=== PATIENT | female | born 1960 | race Caucasian/White ===

== ENCOUNTER 2019-07-03 10:02 | Inpatient (IN) | payer MEDICAID ==
[~2019-07-03] VITALS: Ht 175.3 cm; Wt 110.0 kg
[2019-07-03] MEDS ORDERED: iohexol 300mg/ml 100ml inj. ONE (11:49)
[2019-07-03 12:11] LABS: BASOPHILS # (AUTO) 0.1 X10'3 (0-0.2); BASOPHILS % (AUTO) 0.9 % (0-1); EOSINOPHILS # (AUTO) 0.3 X10'3 (0-0.9); EOSINOPHILS % (AUTO) 3.6 % (0-6); HEMATOCRIT 41.6 % (35.0-45.0); HEMOGLOBIN 13.9 g/dl (12.0-16.0); LYMPHOCYTES # (AUTO) 1.4 X10'3 (1.1-4.8); MEAN CORPUSCULAR HEMOGLOBIN 30.9 PG (27.0-31.0); MEAN CORPUSCULAR HGB CONC 33.5 g/dL (33.0-36.5); MEAN CORPUSCULAR VOLUME 92.3 FL (78-98); MEAN PLATELET VOLUME 9.3 FL (7.4-10.4); MONOCYTES # (AUTO) 0.6 X10'3 (0-0.9); MONOCYTES % (AUTO) 8.2 % (2-12); NEUTROPHILS # (AUTO) 4.9 X10'3 (1.8-7.7); NEUTROPHILS % (AUTO) 68.3 % (42-75); PLATELET COUNT 233 X10'3 (140-440); WHITE BLOOD COUNT 7.1 X10'3 (4.5-11.0)
[2019-07-03 12:14] LABS: CLARITY,URINE SLIGHTLY CLOUDY (Clear); COLOR,URINE STRAW (Yellow); GLUCOSE, URINE NEGATIVE (Neg); KETONES,URINE NEGATIVE (Neg); LEUKOCYTE ESTERASE ,URINE NEGATIVE (Neg); NITRITES, URINE NEGATIVE (Neg); OCCULT BLOOD,URINE TRACE-INTACT (Neg); PH,URINE 5.5 (4.8-8.0); PROTEIN,URINE NEGATIVE (Neg); UROBILINOGEN,URINE 0.2 E.U/dL (0.2-1.0)
[2019-07-03 12:24] LABS: ALANINE AMINOTRANSFERASE 29 U/L (12-78); ALBUMIN 3.3 G/DL (3.4-5.0); ALBUMIN/GLOBULIN RATIO 0.9 (1.1-1.5); ALKALINE PHOSPHATASE 80 IU/L (46-116); ANION GAP 8 (8-16); ASPARTATE AMINO TRANSFERASE 24 U/L (10-37); BILIRUBIN,TOTAL 0.4 MG/DL (0.1-1.0); BLOOD UREA NITROGEN 25 MG/DL (7-18); BUN/CREATININE RATIO 30.9 (6.6-38.0); CHLORIDE 107 MMOL/L (99-107); CREATININE 0.81 MG/DL (0.40-0.90); GLUCOSE 85 MG/DL (70-104); LIPASE 368 U/L (73-393); POTASSIUM 4.2 MMOL/L (3.5-5.1); SODIUM 142 MMOL/L (135-145); TOTAL CARBON DIOXIDE 27.1 MMOL/L (24-32); eGFR 72 ML/MIN
[2019-07-03 12:37] LABS: UA COLLECTION TYPE CLN CATCH MIDSTREAM
[2019-07-03 12:44] LABS: MUCUS STRANDS NONE SEEN /LPF (Neg); SQUAMOUS EPITHELIAL CELL,UR MODERATE /LPF (FEW)
[2019-07-03 12:45] LABS: BACTERIA,URINE FEW /HPF (Neg); RBC,URINE 0-2 /HPF (0-2); WBC,URINE NONE SEEN /HPF (0-4)
--- NOTE | 2019-07-03 14:40 | NUR ---
FAXED MRI SCREENING FORM TO MRI.
--- NOTE | 2019-07-03 14:44 | NUR ---
pt out to mri via wheelchair with nanotechnology engineering technician
[2019-07-03] MEDS ORDERED: potassium Cl 20 mEq SR tablet PO PRN ×2 (17:25)
[2019-07-03] MEDS ORDERED: potassium CL 10mEq/100ml bag 100 ML IV PRN ×2 (17:25)
[2019-07-03] MEDS ORDERED: magnesium 4gm in 100ml NS 100 ML IV PRN (17:25)
[2019-07-03] MEDS ORDERED: mag hydrox/Alum hydrox/simeth 30ml oral suspension PO PRN (17:25)
[2019-07-03] MEDS ORDERED: HYDROcodone/acetaminophen 10/325mg tab PO PRN (17:25)
[2019-07-03] MEDS ORDERED: magnesium Cl slow-release 64mg tablet PO PRN (17:25)
[2019-07-03] MEDS ORDERED: diphenhydrAMINE 25mg capsule PO PRN (17:25)
[2019-07-03] MEDS ORDERED: HYDROcodone/acetaminophen 5mg/325mg tablet PO PRN (17:25)
[2019-07-03] MEDS ORDERED: acetaminophen 325mg tablet PO PRN (17:25)
[2019-07-03] MEDS ORDERED: ondansetron/PF 4mg/2ml inj IV PRN (17:25)
[2019-07-03] MEDS ORDERED: morphine 2 MG/ML inj. syringe IV PRN ×2 (17:25)
[2019-07-03] MEDS ORDERED: acetaminophen 650mg rectal suppository RC PRN (17:25)
[2019-07-03] MEDS ORDERED: magnesium 2GM in 50ml NS 50 ML IV PRN (17:25)
[2019-07-03] MEDS ORDERED: NO HOME MEDS (18:17)
[2019-07-03] MEDS: normal saline 1000ml 1,000 ML IV SCH (18:24)
[2019-07-03] MEDS: K and/or MAG REPLACEMENT MC SCH (18:28)
[2019-07-03 18:48] LABS: C-REACTIVE PROTEIN 0.59 MG/DL (0.0-0.5)
[2019-07-03 18:49] LABS: HEMOGLOBIN A1C 5.5 % (4.5-6.2)
[2019-07-03 19:34] LABS: HIV ANTIBODY 1&2 RAPID NON-REACTIVE (Neg)
--- NOTE | 2019-07-03 20:10 | NUR ---
PATIENT ADMITTED TO ROOM 4024B FROM ER FOR BILATERAL LOWER EXTREMITY WEAKNESS AND POSSIBLE GUILLAIN-BARRE SYNDROME? PLACED COMFORTABLE IN BED. VITAL SIGNS TAKEN AND RECORDED.
[2019-07-03] MEDS ORDERED: temazepam 15mg capsule PO PRN (21:00)
[2019-07-03 22:00] VITALS: BP 131/67
[2019-07-04 04:00] VITALS: BP 116/70
[2019-07-04] MEDS: normal saline 1000ml 1,000 ML IV SCH ×3 (04:05→23:23)
[2019-07-04 06:00] VITALS: BP 129/70
[2019-07-04 06:11] LABS: BASOPHILS # (AUTO) 0.1 X10'3 (0-0.2); BASOPHILS % (AUTO) 0.8 % (0-1); EOSINOPHILS # (AUTO) 0.3 X10'3 (0-0.9); EOSINOPHILS % (AUTO) 4.3 % (0-6); HEMATOCRIT 41.1 % (35.0-45.0); LYMPHOCYTES # (AUTO) 1.6 X10'3 (1.1-4.8); LYMPHOCYTES % (AUTO) 26.2 % (21-51); MEAN CORPUSCULAR HEMOGLOBIN 31.6 PG (27.0-31.0); MEAN CORPUSCULAR HGB CONC 34.1 g/dL (33.0-36.5); MEAN CORPUSCULAR VOLUME 92.7 FL (78-98); MEAN PLATELET VOLUME 9.7 FL (7.4-10.4); MONOCYTES # (AUTO) 0.5 X10'3 (0-0.9); MONOCYTES % (AUTO) 7.9 % (2-12); NEUTROPHILS # (AUTO) 3.7 X10'3 (1.8-7.7); NEUTROPHILS % (AUTO) 60.8 % (42-75); PLATELET COUNT 215 X10'3 (140-440); RED BLOOD COUNT 4.44 X10'6 (4.20-5.60); RED CELL DISTRIBUTION WIDTH 12.9 % (11.5-14.5); WHITE BLOOD COUNT 6.1 X10'3 (4.5-11.0)
[2019-07-04 06:23] LABS: ALANINE AMINOTRANSFERASE 29 U/L (12-78); ALBUMIN/GLOBULIN RATIO 0.8 (1.1-1.5); ALKALINE PHOSPHATASE 74 IU/L (46-116); ANION GAP 10 (8-16); ASPARTATE AMINO TRANSFERASE 24 U/L (10-37); BILIRUBIN,TOTAL 0.3 MG/DL (0.1-1.0); BLOOD UREA NITROGEN 18 MG/DL (7-18); CALCIUM 9.1 MG/DL (8.5-10.1); CHLORIDE 107 MMOL/L (99-107); CHOL/HDL RATIO 2.5 (0.00-4.99); CHOLESTEROL 158 MG/DL (0-200); CREATININE 0.82 MG/DL (0.40-0.90); GLUCOSE 83 MG/DL (70-104); HDL CHOLESTEROL 63 MG/DL (35-60); LDL CHOLESTEROL 88 MG/DL (50-100); MAGNESIUM 1.8 MG/DL (1.5-2.4); PHOSPHORUS 3.5 MG/DL (2.3-4.5); POTASSIUM 3.9 MMOL/L (3.5-5.1); SODIUM 141 MMOL/L (135-145); TOTAL CARBON DIOXIDE 23.8 MMOL/L (24-32); TOTAL PROTEIN 6.6 G/DL (6.4-8.2); TRIGLYCERIDES 64 MG/DL (20-135); eGFR 71 ML/MIN
[2019-07-04 06:25] LABS: CLARITY,URINE CLEAR (Clear); COLOR,URINE STRAW (Yellow); GLUCOSE, URINE NEGATIVE (Neg); KETONES,URINE TRACE mg/dl (Neg); LEUKOCYTE ESTERASE ,URINE NEGATIVE (Neg); NITRITES, URINE NEGATIVE (Neg); OCCULT BLOOD,URINE TRACE-INTACT (Neg); PROTEIN,URINE NEGATIVE (Neg); UROBILINOGEN,URINE 0.2 E.U/dL (0.2-1.0)
[2019-07-04 06:30] LABS: UA COLLECTION TYPE CLN CATCH MIDSTREAM
--- NOTE | 2019-07-04 06:30 | NUR ---
Problems reprioritized. Patient report given, questions answered & plan of care reviewed with GLENN ROSA.
[2019-07-04 06:32] LABS: BACTERIA,URINE FEW /HPF (Neg); RBC,URINE 0-2 /HPF (0-2); SQUAMOUS EPITHELIAL CELL,UR FEW /LPF (FEW); WBC,URINE 0-4 /HPF (0-4)
--- NOTE | 2019-07-04 06:56 | NUR ---
Patient in room [facility] 4024. I have received report from DELMAR JACOBSEN RN and had the opportunity to ask questions and assume patient care.
[2019-07-04] MEDS: K and/or MAG REPLACEMENT MC SCH (07:02)
[2019-07-04 08:55] VITALS: BP 114/76
--- NOTE | 2019-07-04 09:05 | NUR ---
Patient has difficulty with dorsi-flexion and dorsi-extension of their feet. Addendum: 07/04/19 at 0923 by Jaret RAE Amended: Links added.
--- NOTE | 2019-07-04 09:11 | NUR ---
Patient states abdominal on the left and right sides. The pain radiates medially toward the center of the abdomen. Pain is described as achy. Addendum: 07/04/19 at 0923 by Jaret RAE Amended: Links added.
--- NOTE | 2019-07-04 09:15 | NUR ---
according to patient, last bowel movement was 3 days ago 07/01. Addendum: 07/04/19 at 0923 by Jaret RAE Amended: Links added.
[2019-07-04] MEDS: acetaminophen 325mg tablet PO PRN (09:28)
[2019-07-04 10:00] VITALS: BP 140/74
--- NOTE | 2019-07-04 10:56 | NUR ---
Student documentation: I have reviewed all interventions, assessments performed and documented by Ray Cristobal. Student Medication Administration: For this medication-pass time frame, all medication were reviewed, dispensed, administered and documented per hospital policy by Ray Cristobal.
--- NOTE | 2019-07-04 10:57 | NUR ---
Patient states pain on the number V distal phalange of the left foot. Addendum: 07/04/19 at 1100 by Jaret RAE Amended: Links added.
[2019-07-04 14:00] VITALS: BP 132/71
--- NOTE | 2019-07-04 18:08 | NUR ---
Problems reprioritized. Patient report given, questions answered & plan of care reviewed with Debbie ROSA.
[2019-07-05] MEDS: normal saline 1000ml 1,000 ML IV SCH ×3 (01:54→19:23)
[2019-07-05 02:00] VITALS: BP 131/78
[2019-07-05] MEDS: acetaminophen 325mg tablet PO PRN (02:00)
[2019-07-05 05:15] LABS: RPR Non Reactive (Non Reactive)
[2019-07-05 06:09] LABS: BASOPHILS # (AUTO) 0.1 X10'3 (0-0.2); BASOPHILS % (AUTO) 0.9 % (0-1); EOSINOPHILS # (AUTO) 0.2 X10'3 (0-0.9); EOSINOPHILS % (AUTO) 3.9 % (0-6); HEMATOCRIT 42.9 % (35.0-45.0); HEMOGLOBIN 14.4 g/dl (12.0-16.0); LYMPHOCYTES # (AUTO) 1.6 X10'3 (1.1-4.8); LYMPHOCYTES % (AUTO) 25.1 % (21-51); MEAN CORPUSCULAR HEMOGLOBIN 31.3 PG (27.0-31.0); MEAN CORPUSCULAR HGB CONC 33.5 g/dL (33.0-36.5); MEAN CORPUSCULAR VOLUME 93.4 FL (78-98); MEAN PLATELET VOLUME 8.9 FL (7.4-10.4); MONOCYTES # (AUTO) 0.6 X10'3 (0-0.9); MONOCYTES % (AUTO) 9.5 % (2-12); NEUTROPHILS # (AUTO) 3.8 X10'3 (1.8-7.7); NEUTROPHILS % (AUTO) 60.6 % (42-75); PLATELET COUNT 232 X10'3 (140-440); RED CELL DISTRIBUTION WIDTH 12.9 % (11.5-14.5); WHITE BLOOD COUNT 6.3 X10'3 (4.5-11.0)
[2019-07-05 06:10] VITALS: BP 135/67
[2019-07-05 06:31] LABS: ALANINE AMINOTRANSFERASE 25 U/L (12-78); ALBUMIN 2.9 G/DL (3.4-5.0); ALBUMIN/GLOBULIN RATIO 0.8 (1.1-1.5); ALKALINE PHOSPHATASE 67 IU/L (46-116); ANION GAP 6 (8-16); ASPARTATE AMINO TRANSFERASE 18 U/L (10-37); BILIRUBIN,TOTAL 0.3 MG/DL (0.1-1.0); BLOOD UREA NITROGEN 13 MG/DL (7-18); BUN/CREATININE RATIO 16.9 (6.6-38.0); CHLORIDE 110 MMOL/L (99-107); CREATINE KINASE 63 U/L (26-192); CREATININE 0.77 MG/DL (0.40-0.90); GLUCOSE 92 MG/DL (70-104); PHOSPHORUS 2.9 MG/DL (2.3-4.5); POTASSIUM 3.9 MMOL/L (3.5-5.1); SODIUM 144 MMOL/L (135-145); TOTAL PROTEIN 6.4 G/DL (6.4-8.2); eGFR 76 ML/MIN
[2019-07-05 07:10] LABS: HBSAG SCREEN Negative (Negative); HEP B CORE AB, IGM Negative (Negative); HEPATITIS C ANTIBODY >11.0 s/co ratio (0.0-0.9)
[2019-07-05] MEDS: K and/or MAG REPLACEMENT MC SCH (08:00)
[2019-07-05 10:00] VITALS: BP 117/54
[2019-07-05 11:31] LABS: GLUCOSE,CSF 62 MG/DL (40-75)
[2019-07-05 11:41] LABS: TOTAL PROTEIN,CSF 147 MG/DL (30-60)
[2019-07-05 12:24] LABS: APPEARANCE,CSF CLEAR; CSF SUPERNATANT COLOR COLORLESS; CSF VOLUME 22 ML; TUBE# COUNTED 1
[2019-07-05 12:27] LABS: CSF RBC 14 /CU MM (0); CSF WBC CT 131 /CU MM (0-5); LYMPHOCYTES,CSF 86 % (40-80); MONOCYTES,CSF 10 % (15-45); NEUTRO,CSF 4 % (0-6)
[2019-07-05 12:28] LABS: APPEARANCE,CSF CLEAR; CSF RBC 11 /CU MM (0); CSF SUPERNATANT COLOR COLORLESS; CSF VOLUME 22 ML; CSF WBC CT 131 /CU MM (0-5); LYMPHOCYTES,CSF 85 % (40-80); NEUTRO,CSF 3 % (0-6); TUBE# COUNTED 4
[2019-07-05 12:29] LABS: MONOCYTES,CSF 12 % (15-45)
--- NOTE | 2019-07-05 12:29 | NUR ---
MESSAGE: Dr. Galicia I have results for patient Chelle Marquis. CSF white cells 131, red cells 14. That was done in 2 tubes. Also 85% lymphocites, 3% neutrophils, 12% monocytes. Shirley [id number]
[2019-07-05] MEDS ORDERED: methylPREDNISolone sod succ 125mg/2ml vial IV SCH (12:50)
--- NOTE | 2019-07-05 12:52 | NUR ---
I spoke with Dr. Ferro about results and he ordered solumedrol 1 GM X 5 days
[2019-07-05] MEDS: magnesium hydroxide 30ml (MOM) UD suspension PO PRN (13:41)
[2019-07-05] MEDS: methylPREDNISolone SOD SUCC 1000 MG in NORMAL SALINE 100ml IV SCH (15:55)
[2019-07-05] MEDS ORDERED: acyclovir inj 1,000 MG in normal saline 250ml IV soln 230 ML IV SCH (16:00)
[2019-07-05 18:00] VITALS: BP 124/68
--- NOTE | 2019-07-05 18:00 | NUR ---
Received report from Shirley ROSA. assumed care of patient
--- NOTE | 2019-07-05 18:04 | NUR ---
Patient report given to Deborah ROSA
[2019-07-05 22:00] VITALS: BP 141/80
[2019-07-06] MEDS: normal saline 1000ml 1,000 ML IV SCH ×2 (01:41→11:56)
[2019-07-06 02:00] VITALS: BP 135/68
[2019-07-06 06:00] VITALS: BP 155/74
--- NOTE | 2019-07-06 06:18 | NUR ---
Gave report to Bret ROSA.
--- NOTE | 2019-07-06 06:40 | NUR ---
Patient in room [facility]TH[facility] 4024. I have received report from Deborah ROSA and had the opportunity to ask questions and assume patient care.
[2019-07-06 06:41] LABS: BASOPHILS % (AUTO) 0.4 % (0-1); EOSINOPHILS % (AUTO) 0.1 % (0-6); HEMATOCRIT 44.4 % (35.0-45.0); HEMOGLOBIN 14.8 g/dl (12.0-16.0); LYMPHOCYTES # (AUTO) 0.7 X10'3 (1.1-4.8); LYMPHOCYTES % (AUTO) 10.7 % (21-51); MEAN CORPUSCULAR HEMOGLOBIN 30.7 PG (27.0-31.0); MEAN CORPUSCULAR HGB CONC 33.3 g/dL (33.0-36.5); MEAN CORPUSCULAR VOLUME 92.1 FL (78-98); MEAN PLATELET VOLUME 9.8 FL (7.4-10.4); MONOCYTES % (AUTO) 0.6 % (2-12); NEUTROPHILS # (AUTO) 5.9 X10'3 (1.8-7.7); NEUTROPHILS % (AUTO) 88.2 % (42-75); PLATELET COUNT 263 X10'3 (140-440); RED BLOOD COUNT 4.82 X10'6 (4.20-5.60); RED CELL DISTRIBUTION WIDTH 12.8 % (11.5-14.5); WHITE BLOOD COUNT 6.6 X10'3 (4.5-11.0)
[2019-07-06 06:48] LABS: ALANINE AMINOTRANSFERASE 26 U/L (12-78); ALBUMIN 3.1 G/DL (3.4-5.0); ALBUMIN/GLOBULIN RATIO 0.8 (1.1-1.5); ALKALINE PHOSPHATASE 71 IU/L (46-116); ANION GAP 8 (8-16); ASPARTATE AMINO TRANSFERASE 14 U/L (10-37); BILIRUBIN,TOTAL 0.2 MG/DL (0.1-1.0); BLOOD UREA NITROGEN 20 MG/DL (7-18); BUN/CREATININE RATIO 23.8 (6.6-38.0); CHLORIDE 109 MMOL/L (99-107); CREATININE 0.84 MG/DL (0.40-0.90); GLUCOSE 164 MG/DL (70-104); MAGNESIUM 2.1 MG/DL (1.5-2.4); PHOSPHORUS 3.3 MG/DL (2.3-4.5); POTASSIUM 4.1 MMOL/L (3.5-5.1); SODIUM 142 MMOL/L (135-145); TOTAL CARBON DIOXIDE 24.9 MMOL/L (24-32); TOTAL PROTEIN 6.9 G/DL (6.4-8.2); eGFR 69 ML/MIN
[2019-07-06] MEDS: magnesium hydroxide 30ml (MOM) UD suspension PO PRN (08:09)
[2019-07-06] MEDS: K and/or MAG REPLACEMENT MC SCH (08:10)
[2019-07-06] MEDS: methylPREDNISolone SOD SUCC 1000 MG in NORMAL SALINE 100ml IV SCH (08:10)
[2019-07-06 10:00] VITALS: BP 136/71
[2019-07-06] MEDS ORDERED: ACYC-202 PO (13:29)
[2019-07-09 13:29] LABS: CSF WEST NILE VIRUS, IGG Positive (Negative); CSF WEST NILE VIRUS, IGM Negative (Negative); IMMUNOGLOBULIN G, QN CSF 21.8 mg/dL (0.0-8.6); VDRL, CSF Non Reactive (Non Rea:<1:1)
[2019-07-10 09:36] LABS: IMMUNOGLOBULIN G, QN CSF 32.3 mg/dL (0.0-8.6)
[2019-07-10 13:40] LABS: LYME IGG P23 AB Present (.); LYME IGG P28 AB Absent (.); LYME IGG P30 AB Absent (.); LYME IGG P41 AB Present (.); LYME IGG P45 AB Absent (.); LYME IGG P58 AB Present (.); LYME IGG P66 AB Present (.); LYME IGG P93 AB Absent (.); LYME IGG WB INTERP Positive (.); LYME IGM P23 AB Present (.); LYME IGM P39 AB Present (.); LYME IGM P41 AB Present (.); LYME IGM WB INTERP Positive (.)
[2019-07-12 13:31] LABS: ALPHA-1-GLOBULIN, CSF 4.6 % (1.1-6.6); GAMMA GLOBULIN, CSF 20.7 % (3.0-13.0); PRE-ALBUMIN, CSF 1.5 % (2.2-7.1); PROTEIN, TOTAL, CSF 145.1 mg/dL (0.0-44.0)
== END 2019-07-06 16:40 | disposition home or self-care (01) | DRG 49 ==
LOC: ER 10:03 → ED HOLD 18:08 → ORTHO 4S 20:05
PROVIDERS: ADMIT Family Medicine; ATTEND Internal Medicine
PROC: BW251ZZ Computerized Tomography (CT Scan) of Chest, Abdomen and Pelvis using Low Osmolar Contrast (ICD-10-PCS; principal; 2019-07-03)
PROC: 009U3ZX Drainage of Spinal Canal, Percutaneous Approach, Diagnostic (ICD-10-PCS; 2019-07-05)
DX: G61.0 Guillain-Barre syndrome (principal); E66.01 Morbid (severe) obesity due to excess calories; B19.20 Unspecified viral hepatitis C without hepatic coma; F12.90 Cannabis use, unspecified, uncomplicated; B34.9 Viral infection, unspecified; Z66 Do not resuscitate; Z80.0 Family history of malignant neoplasm of digestive organs; Z80.49 Family history of malignant neoplasm of other genital organs; Z85.42 Personal history of malignant neoplasm of other parts of uterus; Z87.891 Personal history of nicotine dependence; Z90.710 Acquired absence of both cervix and uterus; Z68.35 Body mass index [BMI] 35.0-35.9, adult
CPT/HCPCS: 36415; 71260; 72110; 72146; 72148; 74177; 80053; 80061; 81001; 82040; 82042; 82085; 82550; 82607; 82784; 82945; 83036; 83690; 83735; 83873; 84100; 84157; 84166; 84443; 85025; 85610; 85651; 86140; 86335; 86592; 86617; 86703; 86705; 86706; 86788; 86789; 86803; 87015; 87070; 87081; 87340; 89051; 97110; 97116; 97162; 97530; 99285; G0378; J0133; J2930; J7030; J7050; Q9967